=== PATIENT | male | born 1945 | race Caucasian/White ===

== ENCOUNTER 2016-05-18 15:02 | Outpatient (CLI) | payer MEDICARE, BC ==
[~2016-05-18 15:02] MED LIST: AMLO1TAB5 PO; ASPI-605 PO; LOSA100T15 PO; METO100T3 PO
== END 2016-05-18 23:59 | disposition home health service (06) ==
LOC: WOU 15:02
PROVIDERS: ATTEND Podiatrist Foot & Ankle Surgery
DX: L89.894 Pressure ulcer of other site, stage 4 (principal); G80.9 Cerebral palsy, unspecified; Z86.73 Personal history of transient ischemic attack (TIA), and cerebral infarction without residual deficits; Z80.1 Family history of malignant neoplasm of trachea, bronchus and lung; Z82.49 Family history of ischemic heart disease and other diseases of the circulatory system; Z83.3 Family history of diabetes mellitus; Z95.2 Presence of prosthetic heart valve; Z79.82 Long term (current) use of aspirin; Z79.899 Other long term (current) drug therapy; M20.41 Other hammer toe(s) (acquired), right foot; M20.42 Other hammer toe(s) (acquired), left foot; M20.11 Hallux valgus (acquired), right foot; M20.12 Hallux valgus (acquired), left foot; I10 Essential (primary) hypertension; E78.5 Hyperlipidemia, unspecified
CPT/HCPCS: 11043; A6402

== ENCOUNTER 2016-05-19 11:36 | Outpatient (CLI) | payer MEDICARE, BC | END 2016-05-19 23:59 | disposition home or self-care (01) | LOC: RAD 11:36 | PROVIDERS: ATTEND Podiatrist Foot & Ankle Surgery | DX: M86.8X7 Other osteomyelitis, ankle and foot (principal) | CPT/HCPCS: 73630-TC ==

== ENCOUNTER 2016-05-25 13:54 | Outpatient (CLI) | payer MEDICARE, BC | END 2016-05-25 23:59 | disposition home health service (06) | LOC: WOU 13:54 | PROVIDERS: ATTEND Podiatrist Foot & Ankle Surgery | DX: L89.893 Pressure ulcer of other site, stage 3 (principal); G80.9 Cerebral palsy, unspecified; Z86.73 Personal history of transient ischemic attack (TIA), and cerebral infarction without residual deficits; Z80.1 Family history of malignant neoplasm of trachea, bronchus and lung; Z82.49 Family history of ischemic heart disease and other diseases of the circulatory system; Z83.3 Family history of diabetes mellitus; Z95.2 Presence of prosthetic heart valve; Z79.82 Long term (current) use of aspirin; Z79.899 Other long term (current) drug therapy; M20.41 Other hammer toe(s) (acquired), right foot; M20.42 Other hammer toe(s) (acquired), left foot; M20.11 Hallux valgus (acquired), right foot; M20.12 Hallux valgus (acquired), left foot; I10 Essential (primary) hypertension; E78.5 Hyperlipidemia, unspecified | CPT/HCPCS: 11044; A6402 ==

== ENCOUNTER 2016-06-01 13:29 | Outpatient (CLI) | payer MEDICARE, BC | END 2016-06-01 23:59 | disposition home or self-care (01) | LOC: WOU 13:29 | PROVIDERS: ATTEND Podiatrist Foot & Ankle Surgery | DX: L89.894 Pressure ulcer of other site, stage 4 (principal); Z95.2 Presence of prosthetic heart valve; G80.9 Cerebral palsy, unspecified; Z86.73 Personal history of transient ischemic attack (TIA), and cerebral infarction without residual deficits; I10 Essential (primary) hypertension; Z79.82 Long term (current) use of aspirin; K21.9 Gastro-esophageal reflux disease without esophagitis; Z79.899 Other long term (current) drug therapy | CPT/HCPCS: G0463 ==

== ENCOUNTER 2021-09-04 21:25 | Emergency (ER) | payer MEDICARE, BC ==
[~2021-09-04] VITALS: Ht 177.8 cm; Wt 68.0 kg
[~2021-09-04 21:25] MED LIST changes: -LOSA100T15 PO; +LOSA100T31 PO; +METO100T14 PO; -METO100T3 PO
--- NOTE | 2021-09-04 21:35 | NUR ---
[facility] AT BEDSIDE FOR EKG
--- NOTE | 2021-09-04 21:41 | NUR ---
[employer] AT PT'S BEDSIDE
--- NOTE | 2021-09-04 23:00 | NUR ---
Patient discharged to home in stable condition. Written and verbal after care instructions given. Patient verbalizes understanding of instruction.
[2021-09-04 23:31] VITALS: BP 114/72
== END 2021-09-04 23:00 | disposition home or self-care (01) ==
LOC: ER 21:25
DX: R07.89 Other chest pain (principal); I10 Essential (primary) hypertension; Z87.19 Personal history of other diseases of the digestive system; Z88.2 Allergy status to sulfonamides; Z79.899 Other long term (current) drug therapy
CPT/HCPCS: 71045-TC

== ENCOUNTER 2021-10-11 13:52 | Emergency (ER) | payer MEDICARE, BC ==
[~2021-10-11] VITALS: Ht 177.8 cm; Wt 73.9 kg
--- NOTE | 2021-10-11 14:10 | NUR ---
BIB RA 79 FROM HOME, MISSED HIS CHAIR, FELL AND LANDED ON HIS BUTTOCKS, C/O KNEE PAIN. VITALSD ARE WITHIN NORMAL LIMITS. AWAITING MD NELSON.
--- NOTE | 2021-10-11 14:19 | NUR ---
X RAY AT BEDSIDE
--- NOTE | 2021-10-11 14:53 | NUR ---
CALLED [facility] AND SET UP BLS TRANSPORT ETA [phone]
--- NOTE | 2021-10-11 15:38 | NUR ---
TRANPORTATION ARRIVED, REPORT GIVEN. PT TRANSPORTED IN STABLE CONDITION.
[2021-10-11 15:39] VITALS: BP 122/69
== END 2021-10-11 15:40 | disposition home or self-care (01) ==
LOC: ER 13:54
DX: S83.92XA Sprain of unspecified site of left knee, initial encounter (principal); I10 Essential (primary) hypertension; Z86.73 Personal history of transient ischemic attack (TIA), and cerebral infarction without residual deficits; Z98.890 Other specified postprocedural states; Z88.2 Allergy status to sulfonamides; Z60.2 Problems related to living alone; Z79.899 Other long term (current) drug therapy; Z79.82 Long term (current) use of aspirin; W19.XXXA Unspecified fall, initial encounter; Y93.89 Activity, other specified; Y92.89 Other specified places as the place of occurrence of the external cause; Y99.8 Other external cause status
CPT/HCPCS: 73564-TC

== ENCOUNTER 2022-09-19 22:14 | Inpatient (IN) | payer MEDICARE, BC ==
[~2022-09-19] VITALS: Ht 167.6 cm; Wt 72.6 kg
--- NOTE | 2022-09-19 22:30 | NUR ---
PT [facility]ES FROM [facility] C/O: [place] DOES NOT ENDORESE PAIN ON URINATION. PT IS A/OX3 BREATHING EVEN AND UNLABORED AFEBRIL. VITAL WNL. PLACE IN BED LOCKED IN LOWEST POSTION CONNECTED TO BEDSIDE MONITOR.
--- NOTE | 2022-09-19 22:40 | NUR ---
18G RAC BLOOD DRAWN AND SENT TO LAB
--- NOTE | 2022-09-19 22:41 | NUR ---
URINE SPECIMEN SENT TO LAB
[2022-09-19 22:44] LABS: BASOPHILS % (AUTO) 0.2 % (0.0-2.0); HEMATOCRIT 44 % (39-51); HEMOGLOBIN 14.7 g/dL (13.5-17.5); LYMPHOCYTES # (AUTO) 2.2 K/uL (0.8-4.8); LYMPHOCYTES % (AUTO) 36.1 % (20.0-44.0); MEAN CORPUSCULAR HGB CONC 34 g/dl (31.0-36.0); MEAN CORPUSCULAR VOLUME 91 fL (80-96); MONOCYTES # (AUTO) 0.7 K/uL (0.1-1.30); NEUTROPHILS # (AUTO) 2.5 K/uL (1.8-8.9); NEUTROPHILS % (AUTO) 41.7 % (43.0-81.0); PLATELET COUNT (AUTO) 217 K/uL (150-450); RED BLOOD CELL COUNT(AUTO) 4.81 MIL/uL (4.5-6.0)
[2022-09-19 22:49] LABS: BILIRUBIN,URINE NEGATIVE (NEGATIVE); COLOR,URINE YELLOW (YELLOW); LEUKOCYTE ESTERASE ,URINE 2+ (NEGATIVE); NITRITE, URINE POSITIVE (NEGATIVE); PROTEIN,URINE NEGATIVE (NEGATIVE); UGLUCOSE NEGATIVE (NEGATIVE); UROBILINOGEN,URINE 0.2 EU/dL (0.2)
--- NOTE | 2022-09-19 22:52 | NUR ---
SEE LOMELI (/DAUGHTER) -
[2022-09-19 23:10] LABS: CALCIUM, SERUM 9.5 mg/dL (8.5-10.1); CREATININE 0.8 mg/dL (0.6-1.3); POTASSIUM 4.3 mmol/L (3.5-5.1)
[2022-09-19 23:16] LABS: ALBUMIN 3.6 g/dL (3.4-5.0); BILIRUBIN,DIRECT 0.1 mg/dL (0.0-0.2); BILIRUBIN,TOTAL 0.4 mg/dL (0.2-1.0); TOTAL PROTEIN, SERUM 7.5 g/dL (6.4-8.2)
[2022-09-19 23:21] LABS: BACTERIA,URINE Many /HPF (None Seen); RBC,URINE 51-80 /HPF (0-2); WBC,URINE 21-50 /HPF (0-3)
[2022-09-19 23:23] LABS: SQUAMOUS EPITHELIAL CELL,UR Few /HPF (None Seen)
[2022-09-19] MEDS ORDERED: CEFTRIAXONE 1GM BAG (ER ONLY) 1 GM/50 ML PIGGYBACK IV ONE (23:30)
[2022-09-19] MEDS ORDERED: CEFTRIAXONE 1GM BAG (ER ONLY) 50 ML IV ONE (23:34)
--- NOTE | 2022-09-20 01:54 | NUR ---
report given to aminata on third floor
[2022-09-20] MEDS ORDERED: ACETAMINOPHEN 325 MG TABLET PO PRN ×2 (02:00→19:30)
[2022-09-20] MEDS ORDERED: MAGNESIUM HYDROXIDE 30 ML UDC PO PRN ×2 (02:00→19:30)
[2022-09-20] MEDS ORDERED: HYDROCODONE/APAP 5/325MG TABLET PO PRN ×2 (02:00→19:30)
[2022-09-20] MEDS ORDERED: MORPHINE SULFATE INJ 2 MG/ML DISP.SYRIN IV PRN (02:00)
[2022-09-20] MEDS ORDERED: ONDANSETRON HCL/PF 4 MG/2 ML VIAL IVP PRN (02:00)
[2022-09-20] MEDS ORDERED: MAG HYDROX/AL HYDROX/SIMETH 30 ML UDC PO PRN (02:00)
[2022-09-20] MEDS ORDERED: Z GUARD REMEDY 4 OZ OINT TP PRN (02:00)
--- NOTE | 2022-09-20 02:00 | NUR ---
TRANSFERRED TO ROOM
--- NOTE | 2022-09-20 02:30 | NUR ---
MS SODA FLAKER NOTE RECEIVED REPORT FROM TRAVEL SERVICE CONSULTANT RAY. PATIENT WAS BROUGHT TO THE UNIT AT AROUND 0205. PER REPORT, PATIENT CAME FROM [facility] AND WAS SENT TO THE HOSPITAL D/T BLOOD IN URINE. DIRECTED TO ROOM 324-2. PATIENT IS ALERT AND ORIENTED X3. ABLE TO MAKE NEED KNOWN. AFEBRILE AND NOT IN ANY FORM OF ACUTE DISTRESS. BREATHING EVEN AND NON LABORED. NO C/O PAIN OR DISCOMFORT. EXPLAINED ADMISSION PROCESS TO THE PATIENT WHICH INCLUDES SKIN ASSESSMENT WHICH THE PATIENT AGREED. UPON INSPECTION, PATIENT WAS NOTED WITH SEVERAL REDNESS IN THE BODY LIKE IN L CHEST AREA, R ELBOW AND DISCOLORATION ON RIGHT LOWER LEG AND REDNESS ON RIGHT GREAT TOE. BUT OVERALL, SKIN IS INTACT. WITH IV ACCESS ON RAC 18G-SL. VITALS TAKEN AND RECORDED. BELONGINGS AND VALUABLES CHECKED AND DOCUMENTED TOGETHER WITH ASSIGNED STAFF. SAFETY MEASURES IN PLACE. KEPT BED IN LOCKED AND IN LOW POSITION. SIDE RAILS UP X2. ADVISED TO USE THE CALL LIGHT WHEN IN NEED OF ASSISTANCE.
[2022-09-20 03:22] VITALS: BP 116/63; TEMP 97.7; O2SAT 94
--- NOTE | 2022-09-20 06:30 | NUR ---
MS RN CLOSING NOTE PATIENT IN BED, ASLEEP BUT EASY TO AROUSE AND RESPONSIVE. ABLE TO MAKE NEEDS KNOWN. AFEBRILE AND NOT IN ANY FORM OF ACUTE DISTRESS. BREATHING EVEN AND NON LABORED. NO C/O PAIN OR DISCOMFORT THROUGHOUT THE SHIFT. WITH IV ACCESS ON RAC 18G-SL. SAFETY MEASURES IN PLACE. KEPT BED IN LOCKED AND IN LOW POSITION. SIDE RAILS UP X2. ADVISED TO USE THE CALL LIGHT WHEN IN NEED OF ASSISTANCE. ALL NURSING NEEDS ATTENDED. ENDORSED TO INCOMING SHIFT FOR CONTINUITY OF CARE.
--- NOTE | 2022-09-20 07:30 | NUR ---
MS RN OPENING NOTE PATIENT IN BED, AWAKE . ABLE TO MAKE NEEDS KNOWN. AFEBRILE AND NOT IN ANY FORM OF ACUTE DISTRESS. BREATHING EVEN AND NON LABORED. NO C/O PAIN OR DISCOMFORT NOTED AT THIS TIME . WITH IV ACCESS ON RAC 18G-SL. SAFETY MEASURES IN PLACE. KEPT BED IN LOCKED AND IN LOW POSITION. SIDE RAILS UP X2. ADVISED TO USE THE CALL LIGHT WHEN IN NEED OF ASSISTANCE. ALL NURSING NEEDS ATTENDED. WILL MONITOR FOR ANY CHANGES
[2022-09-20 08:00] VITALS: BP 144/69; TEMP 97.7; O2SAT 94
[2022-09-20] MEDS: PANTOPRAZOLE 40 MG TABLET.DR PO SCH (09:40)
[2022-09-20] MEDS ORDERED: ATOR40TA PO (15:16)
[2022-09-20] MEDS ORDERED: CALC-1143 PO (15:16)
[2022-09-20] MEDS ORDERED: MULT-213 PO (15:16)
[2022-09-20] MEDS ORDERED: ACET-2605 PO (15:16)
[2022-09-20] MEDS ORDERED: CRAN250C PO (15:16)
[2022-09-20] MEDS ORDERED: ASCO-352 PO (15:16)
[2022-09-20] MEDS ORDERED: VIT1CAPS9 PO (15:16)
[2022-09-20] MEDS ORDERED: CHOL200059 PO (15:16)
[2022-09-20] MEDS ORDERED: DOCU250C14 PO (15:16)
[2022-09-20] MEDS ORDERED: ACET-868 PO (15:16)
[2022-09-20] MEDS ORDERED: LOSA1TAB42 PO (15:16)
[2022-09-20] MEDS ORDERED: AMLO10TA4 PO (15:16)
[2022-09-20] MEDS ORDERED: POLY17PO4 PO (15:16)
[2022-09-20] MEDS ORDERED: SENN-261 PO (15:16)
[2022-09-20] MEDS ORDERED: CLON-418 PO (15:16)
[2022-09-20] MEDS ORDERED: HYDR-4303 PO (15:16)
[2022-09-20] MEDS ORDERED: BACL10TA PO (15:16)
[2022-09-20] MEDS ORDERED: MAGN400O6 PO (15:16)
[2022-09-20] MEDS ORDERED: APIX2.5T PO (15:16)
[2022-09-20] MEDS ORDERED: METO100T14 PO (15:16)
[2022-09-20 16:00] VITALS: BP 143/76; TEMP 97.4; O2SAT 93
[2022-09-20] MEDS ORDERED: ACETAMINOPHEN ES 500 MG TABLET PO PRN (19:30)
--- NOTE | 2022-09-20 19:39 | NUR ---
MS RN CLOSING NOTE PATIENT IN BED, AWAKE , [place] . ABLE TO MAKE NEEDS KNOWN. AFEBRILE AND NOT IN ANY FORM OF ACUTE DISTRESS. BREATHING EVEN AND NON LABORED. NO C/O PAIN OR DISCOMFORT THROUGHOUT THE SHIFT. WITH IV ACCESS ON RAC 18G-SL. SAFETY MEASURES IN PLACE. KEPT BED IN LOCKED AND IN LOW POSITION. ALL DUE MEDS GIVEN ORDERED , SEEN BY DR CA - SURGEON , SIDE RAILS UP X2. ADVISED TO USE THE CALL LIGHT WHEN IN NEED OF ASSISTANCE. ALL NURSING NEEDS ATTENDED. ENDORSED TO INCOMING SHIFT FOR CONTINUITY OF CARE.
[2022-09-20 20:00] VITALS: BP 126/69; TEMP 98; O2SAT 93
--- NOTE | 2022-09-20 20:07 | NUR ---
MS RN OPENING NOTES: RECEIVED PATIENT AWAKE IN BED, BED IN LOW POSITION CALL LIGHTS WITHIN REACH, NO COMPLAIN OF PAIN AND DISCOMFORT AT THIS TIME, ON ROOM AIR SATURATING WELL PATIENT IS A/O X3 [place], IV LINE AT RAC#18 SL, ON BED REST, REMIND TO USE CALL LIGHTS WHEN NEEDED ASSISTANCE, PATIENT KEPT CLEAN AND DRY ALL NEEDS WILL CONTINUE TO MONITOR
[2022-09-20] MEDS: CEFTRIAXONE 1 G in IV D5W 50 ML IV SCH (21:39)
[2022-09-20] MEDS: ATORVASTATIN 40 MG TABLET PO SCH (21:40)
[2022-09-20] MEDS: METOPROLOL TARTRATE 50 MG TABLET PO SCH (21:40)
--- NOTE | 2022-09-21 06:34 | NUR ---
MS RN CLOSING NOTES; PATIENT SLEEP IN BED COMFORTABLY, BE DIN LOW POSITION CALL LIGHTS WITHIN REACH, NO COMPLAIN OF PAIN AND DISCOMFORT AT THIS TIME, ON ROOM AIR SATURATING WELL, PATIENT KEPT CLEAN AND DRY ALL NEEDS MET ENDORSE TO INCOMING SHIFT.
[2022-09-21 06:48] LABS: BASOPHILS % (AUTO) 0.3 % (0.0-2.0); EOSINOPHILS % (AUTO) 8.4 % (0.0-6.0); HEMATOCRIT 41 % (39-51); HEMOGLOBIN 13.8 g/dL (13.5-17.5); LYMPHOCYTES # (AUTO) 2.1 K/uL (0.8-4.8); LYMPHOCYTES % (AUTO) 33.4 % (20.0-44.0); MEAN CORPUSCULAR HGB CONC 34 g/dl (31.0-36.0); MEAN CORPUSCULAR VOLUME 90 fL (80-96); MONOCYTES # (AUTO) 0.6 K/uL (0.1-1.30); MONOCYTES % (AUTO) 9.4 % (2.0-12.0); NEUTROPHILS # (AUTO) 3.1 K/uL (1.8-8.9); NEUTROPHILS % (AUTO) 48.5 % (43.0-81.0); PLATELET COUNT (AUTO) 201 K/uL (150-450); WHITE BLOOD COUNT (AUTO) 6.4 K/uL (4.3-11.0)
[2022-09-21 07:25] LABS: CALCIUM, SERUM 9.3 mg/dL (8.5-10.1); CREATININE 0.7 mg/dL (0.6-1.3); MAGNESIUM 2.2 mg/dL (1.8-2.4); PHOSPHORUS 3.6 mg/dL (2.5-4.9); POTASSIUM 3.8 mmol/L (3.5-5.1)
--- NOTE | 2022-09-21 07:50 | NUR ---
MS RN OPENING NOTE Patient in bed, awake. A/O x 3, KOI on Left ear but able to make needs known. On room air, breathing evenly and unlabored. No SOB or s/s of distress noted. IV access on RAC #18 SL, intact and patent. Denies any pain or discomfort at this time. Safety precaution in place: bed in low, locked position; siderails up x 2; call light within reach. Will continue to monitor.
[2022-09-21 08:00] VITALS: BP 155/70; TEMP 98.5; O2SAT 95
[2022-09-21] MEDS: HYDROCHLOROTHIAZIDE 25 MG TABLET PO SCH (08:55)
[2022-09-21] MEDS: APIXABAN 2.5 MG TABLET PO SCH ×2 (08:56→17:44)
[2022-09-21] MEDS: CHOLECALCIFEROL 1,000 UNIT TABLET (VIT D3) PO SCH (08:57)
[2022-09-21] MEDS: SENNOSIDES 8.6 MG TABLET PO SCH (08:57)
[2022-09-21] MEDS: LOSARTAN POTASSIUM 50 MG TABLET PO SCH (08:57)
[2022-09-21] MEDS: CALCIUM CARBONATE (1250) 500 MG TABLET PO SCH (08:57)
[2022-09-21] MEDS: PANTOPRAZOLE 40 MG TABLET.DR PO SCH (08:58)
[2022-09-21] MEDS: AMLODIPINE BESYLATE 10 MG TABLET PO SCH (08:58)
[2022-09-21] MEDS: DOCUSATE SODIUM 250 MG CAPSULE PO SCH (08:58)
[2022-09-21] MEDS: BACLOFEN (10 MG) 10 MG TABLET PO SCH ×2 (08:58→17:44)
[2022-09-21] MEDS: MULTIVIT W/MINERALS 1 TAB TABLET PO SCH (08:58)
[2022-09-21] MEDS: ASCORBIC ACID 500 MG TABLET PO SCH (08:58)
[2022-09-21] MEDS: METOPROLOL TARTRATE 50 MG TABLET PO SCH ×2 (08:59→21:02)
[2022-09-21] MEDS ORDERED: Medication Not On Formulary EA (Vit A/Vit C/Vit E/Zinc/Copper (Preservision Areds Softge PO SCH (09:00)
[2022-09-21] MEDS ORDERED: Medication Not On Formulary EA (Cranberry Extract (Cranberry) 500 MG) PO SCH (09:00)
--- NOTE | 2022-09-21 09:00 | NUR ---
RN NOTE Metoprolol scheduled for 0900 held, HR is low at 59. Dr. Orion crowell.
[2022-09-21 16:00] VITALS: BP 130/80; TEMP 97.8; O2SAT 93
[2022-09-21] MEDS: POLYETHYLENE GLYCOL 3350 17 GM POWD.PACK PO SCH (17:44)
--- NOTE | 2022-09-21 18:58 | NUR ---
MS RN CLOSING NOTE Patient in bed, resting. A/O x 3, [place] on Left ear but able to make needs known. Stable on room air, breathing evenly and unlabored. No SOB or s/s of distress noted. IV access on RAC #18 SL, intact and patent. Denies any pain or discomfort at this time. All needs attended to. due meds given. Safety precaution in place: bed in low, locked position; siderails up x 2; call light within reach. Will endorse to health screener nurse for GRE[facility].
--- NOTE | 2022-09-21 19:30 | NUR ---
RN MS OPENING NOTES RECEIVED PATIENT IN BED, A/O X 3 ABLE TO UNDERSTAND [place]; ABLE TO VERBALIZED NEEDS AND CONCERNS. ON ROOM AIR SATURATING WELL NO SOB/ NOTED; PATIENT IS INCONTINENT USES DIAPER AND URINAL, PATIENT IS ON BEDREST ON FALL PRECAUTION BED ALARM ON; WITH IV ACCESS AT RAC #18G -SL PATENT AND INTACT NO SWELLING AND INFILTRATION NOTED; NO PAIN OR DISCOMFORT NOTED AT THIS TIME; KEPT CALL LIGHT WITHIN AT REACH; KEPT BED ON LOWER LOCKED POSITION; KEPT SIDE RAILS UP X 2 ALL THE TIME; KEPT PATIENT WARM AND COMFORTABLE. WILL CONTINUE TO MONITOR.
[2022-09-21] MEDS: CEFTRIAXONE 1 G in IV D5W 50 ML IV SCH (21:00)
[2022-09-21 21:01] VITALS: BP 148/81; TEMP 98.6; O2SAT 93
[2022-09-21] MEDS: ATORVASTATIN 40 MG TABLET PO SCH (21:02)
[2022-09-22 06:13] LABS: BASOPHILS % (AUTO) 0.3 % (0.0-2.0); EOSINOPHILS % (AUTO) 6.7 % (0.0-6.0); HEMATOCRIT 42 % (39-51); HEMOGLOBIN 14.3 g/dL (13.5-17.5); LYMPHOCYTES # (AUTO) 1.9 K/uL (0.8-4.8); LYMPHOCYTES % (AUTO) 26.9 % (20.0-44.0); MEAN CORPUSCULAR HGB CONC 34 g/dl (31.0-36.0); MEAN CORPUSCULAR VOLUME 89 fL (80-96); MONOCYTES # (AUTO) 0.7 K/uL (0.1-1.30); MONOCYTES % (AUTO) 9.3 % (2.0-12.0); NEUTROPHILS # (AUTO) 4.1 K/uL (1.8-8.9); NEUTROPHILS % (AUTO) 56.8 % (43.0-81.0); PLATELET COUNT (AUTO) 212 K/uL (150-450); RED BLOOD CELL COUNT(AUTO) 4.72 MIL/uL (4.5-6.0); WHITE BLOOD COUNT (AUTO) 7.2 K/uL (4.3-11.0)
[2022-09-22 06:25] LABS: CALCIUM, SERUM 9.3 mg/dL (8.5-10.1); CREATININE 0.7 mg/dL (0.6-1.3); PHOSPHORUS 3.9 mg/dL (2.5-4.9); POTASSIUM 3.8 mmol/L (3.5-5.1)
--- NOTE | 2022-09-22 06:26 | NUR ---
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 ON SUGAR MONITORING, NO PAIN OR DISCOMFORT NOTED AT THIS TIME, PM CARE RENDERED, ALL DUE MEDICATIONS GIVEN ORDERED, ALL NEEDS ATTENDED, NO PAIN OR DISCOMFORT NOTED; KEPT BED ON MODERATE HIGH BACK RES POSITION, KEPT SIDE RAILS UP X 2 ALL THE TIME, KEPT CALL LIGHT WITHIN AT REACH. WILL ENDORSED TO AM SHIFT FOR [facility]. Addendum: 09/22/22 at 0629 by Triny Do RN WRONG ENTRY ITS NOT FOR THE PATIENT.
--- NOTE | 2022-09-22 06:33 | NUR ---
RN MS CLOSING NOTES PATIENT IS IN BED, A/O X 3 ABLE TO UNDERSTAND GER[place]; ABLE TO VERBALIZED NEEDS AND CONCERNS. ON ROOM AIR SATURATING WELL NO SOB/ NOTED; PATIENT IS INCONTINENT USES DIAPER AND URINAL, PATIENT IS ON BEDREST ON FALL PRECAUTION BED ALARM ON; WITH IV ACCESS AT RAC #18G -SL PATENT AND INTACT NO SWELLING AND INFILTRATION NOTED; NO PAIN OR DISCOMFORT NOTED AT THIS TIME; ALL DUE MEDICATIONS GIVEN ORDERED, ALL NEEDS ATTENDED, NO PAIN OR DISCOMFORT NOTED; KEPT BED ON MODERATE HIGH BACK RES POSITION, KEPT SIDE RAILS UP X 2 ALL THE TIME, KEPT CALL LIGHT WITHIN AT REACH. WILL ENDORSED TO AM SHIFT FOR [facility].
[2022-09-22 07:00] VITALS: BP 139/70; TEMP 98.2; O2SAT 95
--- NOTE | 2022-09-22 07:28 | NUR ---
RN OPENING NOTES RECEIVED PATIENT IN BED ASLEEP, EASILY AWAKENED, A/O X3, VERBALLY RESPONSIVE AND ABLE TO MAKE NEEDS KNOWN. NO SIGNS OF ACUTE DISTRESS NOTED. ON ROOM AIR, NO SOB NOTED, BREATHING EVEN AND UNLABORED. DENIES ANY PAIN OR DISCOMFORT AT THIS TIME. WITH PERIPHERAL LINE ON RIGHT AC #18G, INTACT AND PATENT, SALINE LOCKED. SAFETY MEASURE IN PLACE. BED IN LOW AND LOCKED POSITION, SIDE RAILS UP X2, CALL LIGHT PLACED WITHIN EASY REACH. WILL CONTINUE TO MONITOR PATIENT.
[2022-09-22] MEDS: PANTOPRAZOLE 40 MG TABLET.DR PO SCH (08:29)
[2022-09-22] MEDS: CALCIUM CARBONATE (1250) 500 MG TABLET PO SCH (08:30)
[2022-09-22] MEDS: DOCUSATE SODIUM 250 MG CAPSULE PO SCH (08:30)
[2022-09-22] MEDS: ASCORBIC ACID 500 MG TABLET PO SCH (08:31)
[2022-09-22] MEDS: HYDROCHLOROTHIAZIDE 25 MG TABLET PO SCH (08:31)
[2022-09-22] MEDS: SENNOSIDES 8.6 MG TABLET PO SCH (08:31)
[2022-09-22] MEDS: MULTIVIT W/MINERALS 1 TAB TABLET PO SCH (08:32)
[2022-09-22] MEDS: AMLODIPINE BESYLATE 10 MG TABLET PO SCH (08:32)
[2022-09-22] MEDS: CHOLECALCIFEROL 1,000 UNIT TABLET (VIT D3) PO SCH (08:32)
[2022-09-22] MEDS: BACLOFEN (10 MG) 10 MG TABLET PO SCH ×2 (08:32→17:04)
[2022-09-22] MEDS: METOPROLOL TARTRATE 50 MG TABLET PO SCH ×2 (08:32→22:03)
[2022-09-22] MEDS: LOSARTAN POTASSIUM 50 MG TABLET PO SCH (08:33)
[2022-09-22] MEDS: CLONIDINE HCL 0.1 MG TABLET PO SCH (08:33)
[2022-09-22] MEDS: APIXABAN 2.5 MG TABLET PO SCH ×2 (08:35→17:05)
[2022-09-22 16:00] VITALS: BP 121/64; TEMP 98.2; O2SAT 95
[2022-09-22] MEDS: POLYETHYLENE GLYCOL 3350 17 GM POWD.PACK PO SCH ×2 (17:04→17:08)
--- NOTE | 2022-09-22 19:00 | NUR ---
RN CLOSING NOTE PATIENT RESTING IN BED AWAKE, NO SIGNS OF ACUTE DISTRESS NOTED. STABLE ON ROOM AIR, NO SOB NOTED, BREATHING EVEN AND UNLABORED. DENIES ANY PAIN OR DISCOMFORT AT THIS TIME. PERIPHERAL LINE ON RIGHT AC #18G, INTACT AND PATENT, SALINE LOCKED. ALL DUE MEDS GIVEN, TAKEN WELL. SAFETY MEASURE MAINTAINED. BED IN LOW AND LOCKED POSITION, SIDE RAILS UP X2, CALL LIGHT PLACED WITHIN EASY REACH. WILL ENDORSE TO NEXT SHIFT FOR CONTINUITY OF CARE.
--- NOTE | 2022-09-22 19:50 | NUR ---
RN Opening Note Pt awake, appears comfortable in bed. A/O*3, hard of hearing, follow simple directions. No s/s of pain noted this time. On RA, breathing even, unlabored, no distress or SOB noted. IV access right AC 18G running SL, patent and intact. Fall and safety precaution measures in place, bed alarm on, bed in low and locked position, call lights and table in easy reach, and side rails up*2. Will continue monitoring.
[2022-09-22 20:00] VITALS: BP 151/77; TEMP 97.7; O2SAT 95
[2022-09-22] MEDS: CEFTRIAXONE 1 G in IV D5W 50 ML IV SCH (22:02)
[2022-09-22] MEDS: ATORVASTATIN 40 MG TABLET PO SCH (22:04)
[2022-09-23 07:00] VITALS: BP 138/81; TEMP 97.5; O2SAT 96
--- NOTE | 2022-09-23 07:10 | NUR ---
RN OPENING NOTE RECEIVED PATIENT RESTING IN BED EYES CLOSED. NO SIGNS OF ACUTE DISTRESS NOTED AT THIS TIME. STABLE ON ROOM AIR, NO SOB NOTED, BREATHING EVEN AND UNLABORED. DENIES ANY PAIN OR DISCOMFORT AT THIS TIME. PERIPHERAL LINE ON RIGHT AC #18G, INTACT. SALINE LOCKED. SAFETY MEASURE MAINTAINED. BED IN LOW AND LOCKED POSITION, SIDE RAILS UP X2, CALL LIGHT PLACED WITHIN EASY REACH. WILL CONTINUE TO MONITOR.
[2022-09-23 07:39] LABS: BASOPHILS % (AUTO) 0.2 % (0.0-2.0); EOSINOPHILS % (AUTO) 8.5 % (0.0-6.0); HEMATOCRIT 44 % (39-51); HEMOGLOBIN 14.8 g/dL (13.5-17.5); LYMPHOCYTES % (AUTO) 33.5 % (20.0-44.0); MEAN CORPUSCULAR HGB CONC 34 g/dl (31.0-36.0); MEAN CORPUSCULAR VOLUME 90 fL (80-96); MONOCYTES # (AUTO) 0.6 K/uL (0.1-1.30); MONOCYTES % (AUTO) 9.6 % (2.0-12.0); NEUTROPHILS # (AUTO) 2.8 K/uL (1.8-8.9); NEUTROPHILS % (AUTO) 48.2 % (43.0-81.0); PLATELET COUNT (AUTO) 224 K/uL (150-450); RED BLOOD CELL COUNT(AUTO) 4.85 MIL/uL (4.5-6.0); WHITE BLOOD COUNT (AUTO) 5.8 K/uL (4.3-11.0)
[2022-09-23] MEDS: PANTOPRAZOLE 40 MG TABLET.DR PO SCH (07:53)
--- NOTE | 2022-09-23 08:17 | NUR ---
RN Closing Note Pt sleeping easily aroused, appears comfortable in bed. A/O*3, forgetful, hard of hearing, follow simple directions. No s/s of pain noted this time. On RA, breathing even, unlabored, no distress or SOB noted. IV access right AC 18G running SL, patent and intact. All needs attended. Scheduled medication administered. Assisted in self-care and reposition. Fall and safety precaution measures in place and maintained, bed alarm on, bed in low and locked position, call lights and table in easy reach, and side rails up*2. Endorsed to day shift.
[2022-09-23] MEDS: LOSARTAN POTASSIUM 50 MG TABLET PO SCH ×2 (08:50→09:00)
[2022-09-23] MEDS: HYDROCHLOROTHIAZIDE 25 MG TABLET PO SCH (08:50)
[2022-09-23] MEDS: CLONIDINE HCL 0.1 MG TABLET PO SCH (08:51)
[2022-09-23] MEDS: METOPROLOL TARTRATE 50 MG TABLET PO SCH ×2 (09:00→21:18)
[2022-09-23] MEDS: DOCUSATE SODIUM 250 MG CAPSULE PO SCH (09:02)
[2022-09-23] MEDS: AMLODIPINE BESYLATE 10 MG TABLET PO SCH (09:03)
[2022-09-23] MEDS: CALCIUM CARBONATE (1250) 500 MG TABLET PO SCH (09:03)
[2022-09-23] MEDS: ASCORBIC ACID 500 MG TABLET PO SCH (09:03)
[2022-09-23] MEDS: CHOLECALCIFEROL 1,000 UNIT TABLET (VIT D3) PO SCH (09:03)
[2022-09-23] MEDS: MULTIVIT W/MINERALS 1 TAB TABLET PO SCH (09:03)
[2022-09-23] MEDS: BACLOFEN (10 MG) 10 MG TABLET PO SCH ×2 (09:04→16:38)
[2022-09-23] MEDS: SENNOSIDES 8.6 MG TABLET PO SCH (09:04)
[2022-09-23] MEDS: APIXABAN 2.5 MG TABLET PO SCH ×2 (09:06→16:40)
[2022-09-23 09:09] LABS: CALCIUM, SERUM 9.3 mg/dL (8.5-10.1); CREATININE 0.6 mg/dL (0.6-1.3); PHOSPHORUS 3.7 mg/dL (2.5-4.9); POTASSIUM 3.7 mmol/L (3.5-5.1)
[2022-09-23 16:00] VITALS: BP 129/71; TEMP 97.8; O2SAT 98
[2022-09-23] MEDS: POLYETHYLENE GLYCOL 3350 17 GM POWD.PACK PO SCH ×2 (17:39→17:44)
--- NOTE | 2022-09-23 18:30 | NUR ---
RN CLOSING NOTE PATIENT RESTING IN BED AWAKE A/OX3-4. NO SIGNS OF ACUTE DISTRESS NOTED AT THIS TIME. STABLE ON ROOM AIR, NO SOB NOTED, BREATHING EVEN AND UNLABORED. DENIES ANY PAIN OR DISCOMFORT AT THIS TIME. PERIPHERAL LINE ON RIGHT AC #18G, INTACT. SALINE LOCKED. PT SISTER SEEN THROUGHOUT THE DAY AT BEDSIDE. SAFETY MEASURE MAINTAINED. BED IN LOW AND LOCKED POSITION, SIDE RAILS UP X2, CALL LIGHT PLACED WITHIN EASY REACH. WILL ENDORSE TO [facility] SHFIT FOR [facility].
--- NOTE | 2022-09-23 19:30 | NUR ---
MS RN OPENING NOTE RECEIVED PATIENT FROM AM NURSE; PATIENT AWAKE IN BED, A/O X 3-4, ABLE TO MAKE NEEDS KNOWN; STABLE ON ROOM AIR, BREATHING EVENLY AND NO S/S OF DISTRESS NOTED; WITH IV ACCESS ON RIGHT AC G#18 SALINE LOCK; ENCOURAGED VERBALIZATION OF NEEDS; SAFETY MEASURES IMPLEMENTED, BED LOCKED IN LOWEST POSITION, SIDE RAILS UP X 2, CALL LIGHT AND TABLE WITHIN REACH; HOB ELEVATED, BED ALARM ON; WILL CONTINUE TO MONITOR THROUGHOUT SHIFT
[2022-09-23 20:00] VITALS: BP 120/65; TEMP 98.2; O2SAT 98
[2022-09-23] MEDS: CEFTRIAXONE 1 G in IV D5W 50 ML IV SCH (21:06)
[2022-09-23] MEDS: ATORVASTATIN 40 MG TABLET PO SCH (21:17)
[2022-09-24 05:59] LABS: BASOPHILS % (AUTO) 0.2 % (0.0-2.0); EOSINOPHILS % (AUTO) 8.4 % (0.0-6.0); HEMATOCRIT 41 % (39-51); HEMOGLOBIN 14.1 g/dL (13.5-17.5); LYMPHOCYTES # (AUTO) 2.3 K/uL (0.8-4.8); LYMPHOCYTES % (AUTO) 40.8 % (20.0-44.0); MEAN CORPUSCULAR HGB CONC 34 g/dl (31.0-36.0); MEAN CORPUSCULAR VOLUME 90 fL (80-96); MONOCYTES # (AUTO) 0.6 K/uL (0.1-1.30); MONOCYTES % (AUTO) 11.1 % (2.0-12.0); NEUTROPHILS # (AUTO) 2.3 K/uL (1.8-8.9); NEUTROPHILS % (AUTO) 39.5 % (43.0-81.0); PLATELET COUNT (AUTO) 217 K/uL (150-450); RED BLOOD CELL COUNT(AUTO) 4.58 MIL/uL (4.5-6.0); WHITE BLOOD COUNT (AUTO) 5.7 K/uL (4.3-11.0)
[2022-09-24 06:11] LABS: CALCIUM, SERUM 9.2 mg/dL (8.5-10.1); CREATININE 0.7 mg/dL (0.6-1.3); MAGNESIUM 2.1 mg/dL (1.8-2.4); POTASSIUM 3.5 mmol/L (3.5-5.1)
[2022-09-24 07:00] VITALS: BP 127/72; TEMP 98.2; O2SAT 94
--- NOTE | 2022-09-24 07:30 | NUR ---
MS RN CLOSING NOTE PATIENT AWAKE IN BED, A/O X 3-4, ABLE TO MAKE NEEDS KNOWN; STABLE ON ROOM AIR, BREATHING EVENLY AND NO S/S OF DISTRESS NOTED; WITH IV ACCESS ON RIGHT AC G#18 SALINE LOCK, INTACT AND PATENT; ADMINISTERED MEDICATIONS PRESCRIBED; PATIENT'S NEEDS ATTENDED; MONITORED ACCORDINGLY; KEPT DRY AND COMFORTABLE; NO COMPLAINTS OF PAIN AND DISCOMFORT AT THIS TIME; SAFETY MEASURES IMPLEMENTED, BED LOCKED IN LOWEST POSITION, SIDE RAILS UP X 2, CALL LIGHT AND TABLE WITHIN REACH; HOB ELEVATED, BED ALARM ON; WILL ENDORSE TO AM NURSE FOR [place].
--- NOTE | 2022-09-24 07:35 | NUR ---
MS RN NOTE DURING ENDORSEMENT, NOTED A SMALL SCRATCH WITH LITTLE BLEEDING FROM PATIENT'S CHIN. PATIENT STATED THAT HE ACCIDENTALLY SCRATCH HIMSELF WHILE SLEEPING. PHOTOGRAPHED TAKEN AND INSERTED INTO THE CHART. ENDORSED TO AM NURSE FOR [facility].
[2022-09-24] MEDS: ASCORBIC ACID 500 MG TABLET PO SCH (08:23)
[2022-09-24] MEDS: CHOLECALCIFEROL 1,000 UNIT TABLET (VIT D3) PO SCH (08:23)
[2022-09-24] MEDS: CALCIUM CARBONATE (1250) 500 MG TABLET PO SCH (08:23)
[2022-09-24] MEDS: APIXABAN 2.5 MG TABLET PO SCH ×2 (08:23→17:19)
[2022-09-24] MEDS: BACLOFEN (10 MG) 10 MG TABLET PO SCH ×2 (08:23→17:18)
[2022-09-24] MEDS: AMLODIPINE BESYLATE 10 MG TABLET PO SCH (08:24)
[2022-09-24] MEDS: DOCUSATE SODIUM 250 MG CAPSULE PO SCH (08:31)
[2022-09-24] MEDS: CLONIDINE HCL 0.1 MG TABLET PO SCH (08:31)
[2022-09-24] MEDS: SENNOSIDES 8.6 MG TABLET PO SCH (08:32)
[2022-09-24] MEDS: MULTIVIT W/MINERALS 1 TAB TABLET PO SCH (08:33)
[2022-09-24] MEDS: PANTOPRAZOLE 40 MG TABLET.DR PO SCH (08:33)
[2022-09-24] MEDS: LOSARTAN POTASSIUM 50 MG TABLET PO SCH (08:39)
[2022-09-24] MEDS: HYDROCHLOROTHIAZIDE 25 MG TABLET PO SCH (08:39)
[2022-09-24] MEDS: METOPROLOL TARTRATE 50 MG TABLET PO SCH (08:39)
--- NOTE | 2022-09-24 09:00 | NUR ---
MEDICATION NOTE HELD METOPROLOL AND [place] BP 127/72 TRENDING DOWN. MONITORING BP
[2022-09-24] MEDS ORDERED: LEVOFLOXACIN (250MG) 250 MG TABLET PO SCH (11:30)
[2022-09-24 16:00] VITALS: BP 119/71; TEMP 98.2; O2SAT 94
[2022-09-24] MEDS ORDERED: CIPR500T5 PO (17:17)
[2022-09-24] MEDS ORDERED: HYDR25TA4 PO (17:17)
[2022-09-24] MEDS: POLYETHYLENE GLYCOL 3350 17 GM POWD.PACK PO SCH (17:55)
--- NOTE | 2022-09-24 18:45 | NUR ---
DISCHARGE NOTE PATIENT A/Ox3-4 IN A MEDICALLY STABLE CONDITION. ON ROOM AIR WITH NO S/S. OF SOB OR DISTRESS. IV ACCESS REMOVED, CATHETER TIP INTACT AND PRESSURE DRESSING APPLIED. NAME BAND REMOVED. SKIN ASSESSMENT COMPLETED AND PICTURES PLACED IN CHART. ALL BELONGING CHECK AND BELONGING LIST SIGNED AND PLACED IN CHART. HEALTH TEACHING PROVIDED TO PATIENT AND VERBALIZED UNDERSTANDING. STAR [place]BOUR AWARE OF DISCHARGE AND CONFIRMED PHARMACY. PATIENT LEFT VIA GURNEY ACCOMPANIED BY 2 EMT. CHARGE NURSE AWARE OF DISCHARGED.
== END 2022-09-24 18:49 | DRG 690 ==
LOC: ER 22:15 → MED 09-20 01:46
PROVIDERS: ADMIT Student in an Organized Health Care Education/Training Program; ATTEND Student in an Organized Health Care Education/Training Program
DX: N39.0 Urinary tract infection, site not specified (principal); K40.90 Unilateral inguinal hernia, without obstruction or gangrene, not specified as recurrent; G80.9 Cerebral palsy, unspecified; I10 Essential (primary) hypertension; K57.92 Diverticulitis of intestine, part unspecified, without perforation or abscess without bleeding; Z79.82 Long term (current) use of aspirin; Z86.73 Personal history of transient ischemic attack (TIA), and cerebral infarction without residual deficits; Z87.440 Personal history of urinary (tract) infections; Z95.2 Presence of prosthetic heart valve; R31.9 Hematuria, unspecified; Z79.01 Long term (current) use of anticoagulants; B96.20 Unspecified Escherichia coli [E. coli] as the cause of diseases classified elsewhere
CPT/HCPCS: 36415; 80048-TC; 80076-TC; 81001; 83735-TC; 84100-TC; 85025-TC; 85730-TC; 87081-TC; 87086-TC; A4223; G0378; J0696; J7040; J7060